=== PATIENT | male | born 1965 | race Caucasian/White ===

== ENCOUNTER 2018-04-14 09:38 | Day surgery (SDC) | payer BC ==
[~2018-04-14] VITALS: Ht 165.1 cm; Wt 95.0 kg
[2018-04-14] MEDS ORDERED: CEFAZOLIN PMX 1GM/50ML 50 ML ONE (10:13)
[2018-04-14] MEDS ORDERED: ONDANSETRON ODT 4 MG ONE (10:13)
[2018-04-14] MEDS ORDERED: MORPHINE SULFATE 4 MG/ML, 1ML ONE ×2 (10:13→10:28)
[2018-04-14] MEDS: MORPHINE SULFATE 4 MG/ML, 1ML IVPush PRN ×2 (10:18→10:59)
[2018-04-14] MEDS ORDERED: ONDANSETRON ODT 4 MG PO ONE (10:30)
[2018-04-14] MEDS ORDERED: CEFAZOLIN PMX 1GM/50ML 50 ML IVPB ONE (10:30)
[2018-04-14] MEDS ORDERED: LISI-170 PO (10:44)
[2018-04-14] MEDS ORDERED: ALLO300T PO (10:44)
[2018-04-14] MEDS ORDERED: ATOR10TA9 PO (10:44)
[2018-04-14] MEDS ORDERED: LEVO100T PO (10:44)
[2018-04-14] MEDS ORDERED: AMLO10TA6 PO (10:44)
[2018-04-14] MEDS ORDERED: MIDAZOLAM 1 MG/ML, 2ML ONE (12:09)
[2018-04-14] MEDS ORDERED: PROPOFOL 10 MG/ML, 20ML ONE (12:10)
[2018-04-14] MEDS ORDERED: FENTANYL PF 250 MCG/5ML ONE (12:10)
[2018-04-14] MEDS ORDERED: WATER-INJECTION,STERILE 10 ML IV ONE (12:11)
[2018-04-14] MEDS ORDERED: SUCCINYLCHOLINE 20 MG/ML, 10ML ONE (12:11)
[2018-04-14] MEDS ORDERED: ROCURONIUM 10MG/ML,5ML ONE (12:11)
[2018-04-14] MEDS ORDERED: CEFAZOLIN 1,000 MG ONE ×3 (12:12→13:02)
[2018-04-14] MEDS ORDERED: ONDANSETRON ODT 8 MG PO PRN (12:30)
[2018-04-14] MEDS ORDERED: MEPERIDINE/PF 25MG/0.5ML IVPush PRN (12:30)
[2018-04-14] MEDS ORDERED: PROMETHAZINE 12.5 MG SUPP PR PRN (12:30)
[2018-04-14] MEDS ORDERED: LABETALOL 5MG/ML, 20ML IV PRN (12:30)
[2018-04-14] MEDS ORDERED: HYDROmorphone 1 MG/ML, 1ML IV PRN (12:30)
[2018-04-14] MEDS ORDERED: ONDANSETRON 2MG/ML, 2ML IV PRN (12:30)
[2018-04-14] MEDS ORDERED: FENTANYL PF 100 MCG/2ML IV PRN (12:30)
[2018-04-14] MEDS ORDERED: PROMETHAZINE 25 MG/ML, 1ML IV PRN (12:30)
[2018-04-14] MEDS ORDERED: hydrALAzine 20 MG/ML, 1ML IV PRN (12:30)
[2018-04-14] MEDS ORDERED: ACETAMINOPHEN 325 MG TABLET PO PRN (12:30)
[2018-04-14] MEDS ORDERED: OXYcodone 5 MG/5 ML ORAL.SOL UDC PO PRN (12:30)
[2018-04-14] MEDS ORDERED: PROMETHAZINE 25 MG SUPP PR PRN (12:30)
[2018-04-14] MEDS ORDERED: PROMETHAZINE 25 MG/ML, 1ML IM PRN ×2 (12:30)
[2018-04-14] MEDS ORDERED: SODIUM CHLORIDE FLUSH 10ML SYR IVF PRN (12:30)
[2018-04-14 12:36] VITALS: BP 142/93
[2018-04-14 12:44] VITALS: BP 142/93
[2018-04-14] MEDS ORDERED: ROPIvacaine/PF 0.5%, 30 ML ONE (12:54)
[2018-04-14] MEDS ORDERED: LIDOCAINE/PF 1%, 30ML ONE (12:55)
[2018-04-14] MEDS ORDERED: FENTANYL PF 100 MCG/2ML ONE ×2 (13:02→14:03)
[2018-04-14] MEDS ORDERED: OXYcodone 5 MG/5 ML ORAL.SOL UDC ONE (14:03)
[2018-04-14] MEDS ORDERED: ACETAMINOPHEN 650 MG/20.3 ML UDC ONE (14:03)
[2018-04-14] MEDS ORDERED: CEPH-368 PO (14:04)
== END 2018-04-14 16:22 | disposition home or self-care (01) ==
LOC: ED 11:28 → EDIP 12:08 → OR 12:08 → UNDOADMIN 12:08 → OR 16:22
PROVIDERS: ATTEND Orthopaedic Surgery
DX: S62.622A Displaced fracture of middle phalanx of right middle finger, initial encounter for closed fracture (principal); M79.5 Residual foreign body in soft tissue; I10 Essential (primary) hypertension; E78.00 Pure hypercholesterolemia, unspecified; Z72.89 Other problems related to lifestyle; Z79.899 Other long term (current) drug therapy; X58.XXXA Exposure to other specified factors, initial encounter; Y93.89 Activity, other specified; Y92.89 Other specified places as the place of occurrence of the external cause; Y99.8 Other external cause status
CPT/HCPCS: 20680; 26755; 73130; 73140; 76000; 93005; 99285; J0690; J2250; J2795; J3010; J3490; Q0162; J2704; J0330